=== PATIENT | female | born 1950 | race Caucasian/White ===

== ENCOUNTER 2018-03-09 05:39 | Day surgery (SDC) | payer MEDICARE, OTHER ==
[2018-03-04 10:30] LABS: BASOPHILS % (AUTO) 0.5 % (0-1); EOSINOPHILS # (AUTO) 0.1 X10'3 (0-0.9); EOSINOPHILS % (AUTO) 2.3 % (0-6); LYMPHOCYTES # (AUTO) 1.4 X10'3 (1.1-4.8); LYMPHOCYTES % (AUTO) 23.7 % (21-51); MEAN CORPUSCULAR HEMOGLOBIN 27.5 PG (27.0-31.0); MEAN CORPUSCULAR HGB CONC 33.1 % (33.0-36.5); MEAN CORPUSCULAR VOLUME 82.9 FL (78-98); MEAN PLATELET VOLUME 7.1 FL (7.4-10.4); MONOCYTES # (AUTO) 0.3 X10'3 (0-0.9); MONOCYTES % (AUTO) 5.3 % (2-12); NEUTROPHILS % (AUTO) 68.2 % (42-75); PRE OP HEMATOCRIT 38.1 % (35.0-45.0); PRE OP HEMOGLOBIN 12.6 g/dL (12.0-16.0); PRE OP PLATELET COUNT 273 X10'3 (140-440); RED CELL DISTRIBUTION WIDTH 14.5 % (11.5-14.5)
[2018-03-04 10:43] LABS: ALBUMIN 3.4 G/DL (3.4-5.0); ALBUMIN/GLOBULIN RATIO 1.1 (1.1-1.5); ALKALINE PHOSPHATASE 84 IU/L (46-116); BLOOD UREA NITROGEN 11 MG/DL (7-18); BUN/CREATININE RATIO 11.3 (6.6-38.0); CALCIUM 8.9 MG/DL (8.5-10.1); CHLORIDE 105 MMOL/L (99-107); CREATININE 0.97 MG/DL (0.40-0.90); PRE OP ALT 27 U/L (30-65); PRE OP ANION GAP 7 (8-16); PRE OP AST 21 U/L (10-37); PRE OP BILIRUB, TOTAL 0.4 MG/DL (0.0-1.0); PRE OP GLUCOSE 86 MG/DL (70-104); PRE OP POTASSIUM 3.7 MMOL/L (3.4-5.1); PRE OP SODIUM 142 MMOL/L (135-145); TOTAL PROTEIN 6.4 G/DL (6.4-8.2); eGFR 57 ML/MIN
[2018-03-09] VITALS (8 sets, daily range): BP systolic 114–132; BP diastolic 65–78
[~2018-03-09] VITALS: Ht 162.6 cm; Wt 67.3 kg
[~2018-03-09 05:39] MED LIST: ASPI81TA52 PO; CYCL10TA26 PO; DOCUMENT DATE & TIME OF BETA-BLOCKER PO ONE; ESOM20CA33 PO; HYDR-565 PO; PROP10TA10 PO; ceFAZolin inj. 2,000 MG in dextrose 5%-water 100 ML IV ONE; famotidine 20mg tablet PO ONE; ringers solution, lacted 1,000 ML IV SCH
[2018-03-09] MEDS ORDERED: ROPIVAcaine 0.5% (5mg/ml) 30ml vial ONE (07:42)
[2018-03-09] MEDS ORDERED: LIDOcaine 1% 30ml preserv. free vial ONE (07:42)
[2018-03-09] MEDS ORDERED: fentaNYL/PF 50MCG/1 ML 2ML syringe ONE (08:28)
[2018-03-09] MEDS ORDERED: MIDAZolam 5mg/5ml vial ONE (08:28)
[2018-03-09] MEDS ORDERED: propofol inj 20 ML IV ONE (08:31)
[2018-03-09] MEDS ORDERED: LIDOcaine 2% (20mg/ml) 5ml vial ONE (08:31)
[2018-03-09] MEDS ORDERED: ringers solution, lacted 1,000 ML IV SCH (08:55)
[2018-03-09] MEDS ORDERED: meperidine/PF 25mg/ml syringe IV PRN ×3 (08:55)
[2018-03-09] MEDS ORDERED: ondansetron/PF 4mg/2ml inj IV PRN (08:55)
[2018-03-09] MEDS ORDERED: morphine 4 MG/ML inj SYRINge IV PRN ×2 (08:55)
[2018-03-09] MEDS ORDERED: proCHLORperazine 10 MG/2 ml inj IV PRN (08:55)
== END 2018-03-09 10:23 | disposition home or self-care (01) ==
LOC: PRE-OP 05:39 → PAS 10:23
PROVIDERS: ATTEND Surgery
DX: D17.0 Benign lipomatous neoplasm of skin and subcutaneous tissue of head, face and neck (principal); K21.9 Gastro-esophageal reflux disease without esophagitis; I10 Essential (primary) hypertension; F41.8 Other specified anxiety disorders; Z79.82 Long term (current) use of aspirin; Z90.710 Acquired absence of both cervix and uterus; Z79.891 Long term (current) use of opiate analgesic; Z87.891 Personal history of nicotine dependence; Z98.890 Other specified postprocedural states; Z79.899 Other long term (current) drug therapy
CPT/HCPCS: 21556; 36415; 80053; 85025; 93005; A6449; J0690; J2001; J2250; J2704; J2795; J3010; J3490; J7060; J7120; A7000